=== PATIENT | female | born 1975 | race African-American/Black ===

== ENCOUNTER 2019-04-02 16:41 | Outpatient (CLI) | payer BC, SELFPAY ==
--- NOTE | ~2019-04-02 | MM_ITS ---
EXAMINATION: MM screening mitra BI w kira HISTORY: Screening mammogram TECHNIQUE: Craniocaudal and mediolateral oblique 3-D tomosynthesis images were obtained and synthetic 2-D images were generated. CAD analysis was submitted and interpreted. COMPARISON: 02/20/2018 BREAST PARENCHYMAL COMPOSITION: The breasts are almost entirely fatty. FINDINGS: There is no evidence of suspicious mass, calcification, or architectural distortion to sugg est malignancy in either breast. There has been no suspicious interval change. IMPRESSION: 1. No mammographic evidence of malignancy. 2. Recommend routine screening mammography in one year. BI-RADS Category 1: Negative Reviewed, dictated and finalized at location A. INSPECTOR
== END 2019-04-02 16:42 | disposition home or self-care (01) ==
LOC: ANHIMG 16:43
PROVIDERS: PCP Internal Medicine; Visit Provider Internal Medicine
DX: Z12.31 Encounter for screening mammogram for malignant neoplasm of breast (principal)
CPT/HCPCS: 77063; 77067

== ENCOUNTER 2022-07-28 12:51 | Emergency (ER) | payer OTHER, SELFPAY ==
[2022-07-28 13:09] VITALS: BP 152/94; PULSE 100; RESP 19; TEMP 36.9; O2SAT 100
--- NOTE | 2022-07-28 13:56 | ED.GENADULT ---
HPI - General Adult General Chief complaint: Unspecified Stated complaint: i just have been feeling really sick Time Seen by Provider: 07/28/22 13:30 History of Present Illness HPI narrative: 46-year-old female presented to the emergency department for evaluation of 2 weeks of body aches and associated generalized weakness and dark urine. Patient does take medication for her blood pressure but denies any change in her medications. Patient reports a few weeks ago she was bit by a bee and did have an allergic reaction to this. Patient reports that the body aches have improved but she still does have generalized fatigue. Related Data Allergies Allergy/AdvReac Type Severity Reaction Status Date / Time No Known Allergies Allergy Mild Verified 07/28/22 12:53 Review of Systems Review of Systems: All systems reviewed & are unremarkable except as noted in HPI and below PMFSH Family History Family History (Updated 10/02/15 @ 23:19 by DOCTOR UNKNOWN) Father Family history of elevated blood lipids Family history of diabetes mellitus in first degree relative Grandparent Diabetes mellitus Social History Social History Smoking status: Light tobacco smoker Second hand tobacco smoke exposure: No Smoking end date: 03/06/10 Alcohol intake: current Exam Narrative: APPEARANCE: Well appearing, no pain, no distress, well-nourished. HEAD: normocephalic, atraumatic. EYES: PERRLA/EOMI, conjunctivae clear. NOSE: Normal no drainage NECK: Supple. No adenopathy, no masses. RESPIRATORY: Airway patent, respirations nonlabored. Clear to auscultation bilaterally, no rales, rhonchi, wheezing. CARDIOVASCULAR: Regular rate and rhythm without murmurs rubs or gallops. ABDOMINAL: Soft, nontender, nondistended, normal bowel sounds MUSCULOSKELETAL: Moves all extremities. Strength/ROM intact, No edema, No calf tenderness. NEURO: Alert. Cranial nerves II through XII intact. Grossly intact SKIN: Warm, dry. Normal Color Course Course Emergency Course: 46-year-old female present emerged department for evaluation of generalized weakness and dark urine. Patient is afebrile with no leukocytosis. Patient's hemoglobin is 12.0. Patient's patient does have elevated transaminases with an AST of 169, ALT of 266 and alk phos of 360. Patient has no elevation in her bilirubin. Patient's UA is concerning for urinary tract infection with positive nitrates positive leukoesterase and 11-20 white blood cells, along with high bacteria. Patient was started on IV Rocephin and will be discharged home on p.o. Keflex. Patient was updated on the results of her work-up and encouraged to drink plenty fluids and take antibiotics until completed. Patient was also encouraged of close follow-up with her physician to have her liver enzymes rechecked. Patient described an episode where she was stung on the left by a bee a few weeks ago and she had associated tachycardia diaphoresis nausea and GI symptoms. 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 Patient was written a prescription for an EpiPen in case she has additional bee stings and has an escalated reaction. Vital Signs Vital signs: Vital Signs Temperature 98.5 F 07/28/22 13:09 Pulse Rate 100 07/28/22 13:09 Respiratory Rate 19 07/28/22 13:09 Blood Pressure 152/94 H 07/28/22 13:09 Pulse Oximetry 100 07/28/22 13:09 Oxygen Delivery Room Air 07/28/22 13:09 Temperature 98.5 F 07/28/22 13:09 Pulse Rate 104 H 07/28/22 15:29 Respiratory Rate 26 H 07/28/22 15:29 Blood Pressure 138/70 07/28/22 15:29 Pulse Oximetry 98 07/28/22 15:29 Oxygen Delivery Room Air 07/28/22 13:09 Medical Decision Making Differential Diagnosis Differential Diagnosis: Urinary tract infection, rhabdomyolysis, kidney stone Vital Signs Vital Signs: Vital Signs Temperature 98.5 F 07/28/22 13:09 Pulse Rate 100 07/28/22 13:09 Respiratory Rate 19 07/28/22 13:09 Blood Pressure 152/94 H 07/28/22 13:
[2022-07-28 13:59] VITALS: PULSE 114
[2022-07-28 14:07] LABS: Basophils Absolute Auto 0.1 K/mm3 (0.0-0.1); Basophils Percent Auto 1.5 % (0.2-1.2); Eosinophils Absolute Auto 0.1 K/mm3 (0-0.3); Eosinophils Percent Auto 0.7 % (0-4.4); Hematocrit 36.7 % (37.0-47.0); Immature Granulocyte Absolute 0.07 K/mm3 (0.00-0.031); Immature Granulocyte Percent A 0.8 % (0-0.5); Lymphocytes Absolute Auto 5.19 K/mm3 (0.9-3.2); Lymphocytes Percent Auto 62.8 % (18.3-44.2); Mean Corpuscular HGB Conc 32.7 g/dl (32-36); Mean Corpuscular Volume 82.5 fl (80-100); Monocytes Absolute Auto 0.4 K/mm3 (0.1-0.6); Monocytes Percent Auto 4.6 % (2.6-8.5); Neutrophils Absolute Auto 2.4 K/mm3 (1.3-6.7); Neutrophils Percent Auto 29.6 % (45.5-73.1); Platelet Count Result 273 k/mm3 (150-375); Red Blood Count 4.45 M/mm3 (4.2-5.4); Red Cell Distribution Width 13.5 % (11.5-14.5); White Blood Count 8.3 K/mm3 (4.5-10.0)
[2022-07-28 14:09] VITALS: RESP 22; O2SAT 100
[2022-07-28 14:11] VITALS: BP 130/79; PULSE 117; RESP 22; O2SAT 100
[2022-07-28 14:17] LABS: Alanine Aminotransferase 266 U/L (6-35); Albumin Level 3.9 g/dL (3.5-5.1); Alkaline Phosphatase 360 U/L (38-126); Anion Gap 8 mmol/L (8-16); Aspartate Amino Transferase 169 U/L (14-36); Blood Urea Nitrogen 7 mg/dL (7-17); Calcium 8.2 mg/dL (8.4-10.2); Carbon Dioxide 27 mmol/L (22-30); Chloride 100 mmol/L (98-107); Creatine Kinase 120 U/L (30-135); Estimated CRCL calculation 108 ml/min; Estimated Glomerular Filt Rate > 60; Glucose 101 mg/dL (65-110); Potassium 3.4 mmol/L (3.4-5.0); Sodium 135 mmol/L (137-145)
[2022-07-28] MEDS: SODIUM CHLORIDE 0.9% IV 1,000 ML 999 ML IV CONT (14:32)
[2022-07-28 14:34] LABS: Atypical Lymphocytes Present; Platelet Estimate Adequate (Adequate); Schistocytes None Seen (NORMAL)
[2022-07-28 14:46] LABS: Appearance Urine Cloudy (Clear); Bacteria Urine 2+ /hpf; Bilirubin Urine Negative (Negative); Blood Urine Negative (Negative); Color Urine Dark Yellow (Yellow); Glucose Urine UA Negative (Negative); Ketones Urine 1+ mg/dL (Negative); Leukocyte Esterase Ur Trace LEU/UL (Negative); Need Manual Microscopic Reviewed; Nitrate Urine Positive (Negative); Protein Urine 1+ mg/dL (Negative); Specific Grav Ur 1.011 (1.001-1.035); Squamous Epithelial Cell Urine Few /hpf (Few)
[2022-07-28 14:47] LABS: Add Urine Microscopic? YES
[2022-07-28 15:05] LABS: Influenza A QL RT-PCR Negative (Negative); Influenza B QL RT-PCR Negative (Negative); RSV RNA, RT-PCR Negative (Negative); SARS-CoV-2 RNA PCR Negative (Negative)
[2022-07-28 15:29] VITALS: BP 138/70; PULSE 104; RESP 26; O2SAT 98
== END 2022-07-28 15:30 | disposition home or self-care (01) ==
PROVIDERS: Emergency Provider Emergency Medicine
DX: N39.0 Urinary tract infection, site not specified (principal); R74.01 Elevation of levels of liver transaminase levels; Z20.822 Contact with and (suspected) exposure to COVID-19; Z87.891 Personal history of nicotine dependence
CPT/HCPCS: 36415; 80053; 81001; 81025; 82550; 85025; 87077; 87086; 87088; 87186; 87637; 96360; 99283; J7030

== ENCOUNTER 2022-10-07 14:26 | Outpatient (CLI) | payer OTHER, SELFPAY ==
--- NOTE | ~2022-10-07 | MM_ITS ---
EXAMINATION: MM screening mitra BI w kira HISTORY: Screening mammogram TECHNIQUE: Craniocaudal and mediolateral oblique 3-D tomosynthesis images were obtained and synthetic 2-D images were generated. CAD analysis was submitted and interpreted. COMPARISON: 04/02/2019, 02/20/2018 BREAST PARENCHYMAL COMPOSITION: The breasts are almost entirely fatty. FINDINGS: No suspicious mass, calcification, or architectural distortion are identified in either kyra ast to suggest malignancy. There has been no suspicious interval change. IMPRESSION: 1. No mammographic evidence of malignancy. 2. Recommend routine screening mammography in one year. BI-RADS Category 1: Negative Reviewed, dictated and finalized at location A.
== END 2022-10-07 14:27 | disposition home or self-care (01) ==
LOC: ANHIMG 14:55
PROVIDERS: Visit Provider Family Medicine
DX: Z12.31 Encounter for screening mammogram for malignant neoplasm of breast (principal)
CPT/HCPCS: 77063; 77067

== ENCOUNTER 2022-12-06 00:39 | Day surgery (SDC) | payer OTHER, SELFPAY ==
[2022-11-23 15:54] VITALS: BMI 45.5
[2022-12-06 08:15] VITALS: BP 140/87; PULSE 86; RESP 18; TEMP 36.1; O2SAT 99
--- NOTE | 2022-12-06 08:26 | PM.HPGS ---
History of Present Illness History of Present Illness Consent: Risks, benefits, and alternatives have been discussed and questions answered. Patient agrees to proceed with procedure. Chief complaint: neoplasm screening Narrative: Norma Carranza is a 47 year old female here for first screening colonoscopy Review of Systems Constitutional: Constitutional: Denies headache(s) and Denies weakness Eyes: Eyes: Denies blurry vision ENT: Reports Normal hearing present, Denies headache(s) and Denies neck pain Cardiovascular: Cardiovascular: Denies chest pain and Denies dyspnea Respiratory: Respiratory: Denies dyspnea Gastrointestinal: Gastrointestinal: Reports no additional gastrointestinal complaints Genitourinary: Genitourinary: Denies dysuria Musculoskeletal: Musculoskeletal: Denies neck pain Integumentary/Breasts: Skin/Breast: Denies dry skin Neurologic: Reports Normal hearing present, Denies headache(s) and Denies weakness Psychiatric: Psychiatric: Denies anxiety Endocrine: Endocrine: Denies change in body appearance Hematologic/Lymphatic: Hematologic/Lymphatic: Denies easy bleeding Allergic/Immunologic: Allergic/Immunologic: Denies urticaria [facility] Past Medical History Medical History (Updated 12/06/22 @ 08:27 by Jimbo Whitaker MD) Colon cancer screening Family History Family History (Updated 10/02/15 @ 23:19 by DOCTOR UNKNOWN) Father Family history of elevated blood lipids Family history of diabetes mellitus in first degree relative Grandparent Diabetes mellitus Social History Social History Years smoked: 24 Smoking status: Former smoker Tobacco type: cigarettes Second hand tobacco smoke exposure: No Smoking end date: 03/06/10 Alcohol intake: never Substance use: current Substance use type: marijuana Other substance usage details: 2-3 times/week Living arrangements: alone Spiritual care concerns: No Meds Home Medications and Allergies Home Medications Medication Instructions Recorded Confirmed Type epinephrine 0.3 mg/0.3 mL 0.3 mg (0.3 mL) IM ONCE #2 ea 07/28/22 11/23/22 Rx injection, auto-injector (EpiPen) amlodipine 5 mg tablet 5 mg PO DAILY 11/23/22 11/23/22 History Allergies Allergy/AdvReac Type Severity Reaction Status Date / Time No Known Allergies Allergy Mild Verified 12/06/22 08:14 Vital Signs Vital Signs - 24 hr 12/06/22 08:15 Temperature 97 F L Pulse Rate 86 Respiratory Rate 18 Blood Pressure 140/87 Pulse Oximetry 99 Oxygen Delivery Room Air Exam Const: General: comfortable and no acute distress HENMT: Face/Nose/Sinus: Normal nares present Eyes: General: appearance normal, both eyes and all related structures Neck: Neck: no JVD Resp: Auscultation: clear to auscultation bilaterally Cardio: Rate: regular rate Rhythm: regular rhythm GI: Inspection: non-distended GI Palp: Yes Soft to palpation Skin: General skin exam: normal color Neuro: General: gait normal Speech: normal speech Extrem: General: normal to inspection Psych: Mental Status: mental status grossly normal Assessment and Plan Assessment and plan (1) Colon cancer screening: Code(s): Z12.11 - Encounter for screening for malignant neoplasm of colon Status: Acute Assessment and Plan: colonoscopy
[2022-12-06] MEDS: LACTATED RINGERS 1,000 ML 150 ML IV CONT (08:28)
--- NOTE | 2022-12-06 08:44 | WPDANESEPPF ---
Anes - Initial Pre Proc Eval Procedure: Operation Date: 12/06/22 09:30 Proposed Procedures p Screening Colonoscopy - Jimbo Whitaker MD Date/Time: 12/06/22 08:44 Surgeon: Jimbo Whitaker MD Pre Op Diagnosis: neoplasm screening Patient Data Age: 47 Gender: F Height: 1.7 m Weight: 130.6 kg Last Vital Signs Temp 97 F L 12/06/22 08:15 Pulse 86 12/06/22 08:15 Resp 18 12/06/22 08:15 BP 140/87 12/06/22 08:15 Pulse Ox 99 12/06/22 08:15 O2 Del Method Room Air 12/06/22 08:15 Allergies Allergy/AdvReac Type Severity Reaction Status Date / Time No Known Allergies Allergy Mild Verified 12/06/22 08:14 Home Medications Medication Instructions Recorded Confirmed Type epinephrine 0.3 mg/0.3 mL 0.3 mg (0.3 mL) IM ONCE #2 ea 07/28/22 11/23/22 Rx injection, auto-injector (EpiPen) amlodipine 5 mg tablet 5 mg PO DAILY 11/23/22 11/23/22 History Patient hx anesthesia problems: none Family hx anesthesia problems: none Results Review: All pre-operative results and documents have been reviewed as part of the pre-operative evaluation. [facility] Past Medical History Medical History (Updated 12/06/22 @ 08:27 by Jimbo Whitaker MD) Colon cancer screening Family History Family History (Updated 10/02/15 @ 23:19 by DOCTOR UNKNOWN) Father Family history of elevated blood lipids Family history of diabetes mellitus in first degree relative Grandparent Diabetes mellitus Social History Social History Years smoked: 24 Smoking status: Former smoker Tobacco type: cigarettes Second hand tobacco smoke exposure: No Smoking end date: 03/06/10 Alcohol intake: never Substance use: current Substance use type: marijuana Other substance usage details: 2-3 times/week Living arrangements: alone Spiritual care concerns: No Anes - Eval Final PreProcedure Day of Procedure 12/06/22 08:44 Patient weight: morbidly obese Airway: Mallampati scale class II ASA classification: III Anesthesia type and monitoring: general GIVS and standard monitoring Results Review: All pre-operative results and documents have been reviewed as part of the pre-operative evaluation. Informed Consent: The patient's anesthetic plan and its attendant risks and benefits were discussed with the patient/family/POA. Questions were solicited and answers provided to the satisfaction of the patient/family/POA.
[2022-12-06 08:47] VITALS: BP 103/55; PULSE 77; RESP 20; O2SAT 98
[2022-12-06 08:57] VITALS: BP 122/78; PULSE 64; RESP 20; O2SAT 100
[2022-12-06 09:07] VITALS: BP 129/87; PULSE 60; RESP 20; O2SAT 100
== END 2022-12-06 09:34 | disposition home or self-care (01) ==
PROVIDERS: Visit Provider Internal Medicine Gastroenterology
PROC: 0DJD8ZZ Inspection of Lower Intestinal Tract, Via Natural or Artificial Opening Endoscopic (ICD-10-PCS; CPT 45378; principal; 2022-12-06 09:30)
DX: Z12.11 Encounter for screening for malignant neoplasm of colon (principal); Z87.891 Personal history of nicotine dependence; F12.90 Cannabis use, unspecified, uncomplicated; E66.01 Morbid (severe) obesity due to excess calories; Z68.42 Body mass index [BMI] 45.0-49.9, adult
CPT/HCPCS: 45378; J2704; J7120

== ENCOUNTER 2023-03-24 17:52 | Emergency (ER) | payer OTHER, SELFPAY ==
[2023-03-24 18:05] VITALS: BP 149/86; PULSE 73; RESP 18; TEMP 36.4; O2SAT 100
[2023-03-24 18:06] VITALS: BP 149/86; PULSE 73; RESP 18; TEMP 36.4; O2SAT 100
--- NOTE | 2023-03-24 18:08 | ED.URI ---
HPI - URI/Sore Throat General Chief Complaint: Upper Respiratory Infection Stated Complaint: cough,nausea,congestion Time Seen by Provider: 03/24/23 18:08 History of Present Illness HPI Narrative: 47-year-old female presented for complaint of cough, nasal congestion, nausea, onset 4 days. And bilateral eye crusting since yesterday. Denies vision changes, swelling, headaches. Taking Mucinex for symptoms. Denies shortness of breath, wheezing, vomiting, diarrhea, fevers or lethargy. She took a home COVID test, negative today. Related Data Home Medications Medication Instructions Recorded Confirmed amlodipine 5 mg tablet 5 mg PO DAILY 11/23/22 03/24/23 Allergies Allergy/AdvReac Type Severity Reaction Status Date / Time No Known Allergies Allergy Mild Verified 03/24/23 18:05 Review of Systems Review of Systems: CONSTITUTIONAL: Denies body aches, fever, chills, or sweats. EYES: Denies visual changes, redness, reports discharge. ENT: reports rhinorrhea, congestion. CARDIOVASCULAR: Denies chest pain, palpitations, or edema. RESPIRATORY: reports cough Denies dyspnea. GASTROINTESTINAL: Denies abdominal pain, nausea, vomiting, or diarrhea. SKIN: Denies rash, itching, or wounds. MUSCULOSKELETAL: Denies back pain, joint pain, or myalgia. NEUROLOGIC: Denies headache PMFSH Past Medical History Medical History Colon cancer screening Family History Family History Father Family history of elevated blood lipids Family history of diabetes mellitus in first degree relative Grandparent Diabetes mellitus Social History Social History Years smoked: 24 Smoking status: Former smoker Tobacco type: cigarettes Second hand tobacco smoke exposure: No Smoking end date: 03/06/10 Alcohol intake: never Substance use: current Substance use type: marijuana Other substance usage details: 2-3 times/week Living arrangements: alone Spiritual care concerns: No Exam Narrative: GENERAL: well-appearing, no acute distress. EYES: conjunctival injection mild bilaterally; left eye with moderate amount purulent drainage ENT: Mucous membranes moist. TMs pearly calvillo with normal light reflex bilaterally; no tragal tenderness. Oropharynx erythematous without lesions. Tonsils not enlarged and without exudate. No drooling, no hoarseness, no trismus, uvula midline. No tripod positioning, hot potato voice, or soft palate swelling. NECK: Supple. No lymphadenopathy CHEST: Clear to auscultation, breath sounds equal. No respiratory distress, speaks in full sentences. Frequent moist band master cough HEART: Regular rate and rhythm. No murmur heard. SKIN: Warm, dry, no rash. NEURO: Alert and oriented x3. Course Course Emergency Course: Patient is aware of diagnosis, understands and agrees to treatment plan. Anticipatory guidance given. Patient agrees to follow-up as directed and is aware of reasons to seek care at the emergency department. Portions of this record may have been created with voice recognition software Level of Care: Express Care Visit Vital Signs Vital signs: Vital Signs Temperature 97.5 F L 03/24/23 18:05 Pulse Rate 73 03/24/23 18:05 Respiratory Rate 18 03/24/23 18:05 Blood Pressure 149/86 H 03/24/23 18:05 Pulse Oximetry 100 03/24/23 18:05 Oxygen Delivery Room Air 03/24/23 18:05 Temperature 97.5 F L 03/24/23 18:06 Pulse Rate 73 03/24/23 18:06 Respiratory Rate 18 03/24/23 18:06 Blood Pressure 149/86 H 03/24/23 18:06 Pulse Oximetry 100 03/24/23 18:06 Oxygen Delivery Room Air 03/24/23 18:06 MDM - URI/Sore Throat MDM Narrative Medical decision making narrative: neg flu result reviewed with pt. discussed physical exam findings consistent with conjunctivitis Advise supportive treatments. Dominga
== END 2023-03-24 18:37 | disposition home or self-care (01) ==
PROVIDERS: Emergency Provider Nurse Practitioner Family
DX: H10.32 Unspecified acute conjunctivitis, left eye (principal); J06.9 Acute upper respiratory infection, unspecified; Z87.891 Personal history of nicotine dependence; F12.90 Cannabis use, unspecified, uncomplicated
CPT/HCPCS: 87804; 99213; G0463

== ENCOUNTER 2023-12-08 09:53 | Emergency (ER) | payer OTHER, SELFPAY ==
[2023-12-08 10:26] VITALS: BP 116/70; PULSE 76; RESP 16; TEMP 36.4; O2SAT 99
--- NOTE | 2023-12-08 10:40 | ED.EYEPROB ---
HPI - Eye Problem General Chief complaint: Eye Problems Stated complaint: bilateral eye irritation Time Seen by Provider: 12/08/23 10:41 Source: patient, RN notes reviewed and old records reviewed Mode of arrival: ambulatory Limitations: no limitations History of Present Illness HPI Narrative: patient presents with complaints of bilateral eye irritation. She reports that symptoms began in right eye yesterday, this eye was matted shut upon awakening, and she began having some irritation to the left eye this morning. She reports some purulent drainage, redness. Denies injury or trauma. She does wear contact lenses. Denies any visual disturbances. No other concerns or complaints today Related Data Home Medications Medication Instructions Recorded Confirmed amlodipine 5 mg tablet 5 mg PO DAILY 11/23/22 12/08/23 Allergies Allergy/AdvReac Type Severity Reaction Status Date / Time No Known Allergies Allergy Mild Verified 12/08/23 10:24 Review of Systems Review of Systems: All systems reviewed & are unremarkable except as noted in HPI and below Constitutional: Constitutional: Reports no additional constitutional complaints Eyes: Eyes: Reports as per HPI, Denies blurry vision, Denies change in vision, Reports eye discharge, Reports irritation, Reports itchy eyes and Reports requires corrective lenses ENT: Reports system reviewed and no additional complaints, except as documented Cardiovascular: Cardiovascular: Reports no additional cardiovascular complaints Respiratory: Respiratory: Reports no additional respiratory complaints Gastrointestinal: Gastrointestinal: Reports no additional gastrointestinal complaints [facility] Past Medical History Medical History Colon cancer screening Family History Family History Father Family history of elevated blood lipids Family history of diabetes mellitus in first degree relative Grandparent Diabetes mellitus Social History Social History Years smoked: 24 Smoking status: Former smoker Tobacco type: cigarettes Second hand tobacco smoke exposure: No Smoking end date: 03/06/10 Alcohol intake: never Substance use: current Substance use type: marijuana Other substance usage details: 2-3 times/week Living arrangements: alone Spiritual care concerns: No Comments At the time of my signature, I reviewed and agree with the nursing past medical, surgical, social, and family history. There is no relevant family history pertinent to the patient complaint. Exam Const: General: cooperative, no acute distress, alert and awake Orientation/consciousness: oriented to person, oriented to place and oriented to time HENMT: Head: normal to inspection Eyes: Eyelids: eyelids normal Conjunctivae: conjunctival abnormality bilateral conjunctival injection and discharge Sclera: scleral abnormality right scleral injection medial Resp: Effort & Inspection: normal respiratory effort and able to speak in complete sentences Auscultation: clear to auscultation bilaterally, no crackles, no rales, no rhonchi and no wheezes Cardio: Palpation: normal PMI Rate: regular rate Rhythm: regular rhythm Heart sounds: S1 normal heart sound present and S2 normal heart sound present Neuro: General: oriented to person, oriented to place and oriented to time Cranial nerves: Yes CN's II-XII intact bilaterally Psych: Appearance: grossly normal Thought process: Normal thought process present Insight: Good insight present (Psych) Judgement: Good judgement present (Psych) Course Course Emergency Course: exam consistent with conjunctivitis. Treat with ophthalmic ointment. Patient advised not to wear contact lenses until treatment complete, discard any eye cosmetics that have been used in the past 48 hours. She is in agreeme
== END 2023-12-08 10:53 | disposition home or self-care (01) ==
PROVIDERS: Emergency Provider Nurse Practitioner Family; PCP Family Medicine
DX: H10.9 Unspecified conjunctivitis (principal); Z87.891 Personal history of nicotine dependence; F12.90 Cannabis use, unspecified, uncomplicated
CPT/HCPCS: 99213; G0463

== ENCOUNTER 2024-03-03 18:08 | Emergency (ER) | payer OTHER, SELFPAY ==
[2024-03-03 18:27] VITALS: O2SAT 100
[2024-03-03 18:50] VITALS: BP 161/96; PULSE 82; RESP 16; TEMP 36.7
[2024-03-03 18:51] LABS: EDUAAPPEAR Clear; EDUABILI Negative (Negative); EDUABLOOD Trace (Negative); EDUACOLOR1 Yellow; EDUAGLUCOSE Negative (Negative); EDUAKETONE Negative (Negative); EDUALEUKO Negative (Negative); EDUANITRATE Negative (Negative); EDUAPROTEIN Negative (Negative); EDUAUROBILI 0.2
--- NOTE | 2024-03-03 18:52 | ED_ITS ---
HPI - Female Genitourinary General Chief complaint: Urogenital-Female Stated complaint: Uti Symptoms Time Seen by Provider: 03/03/24 18:48 Source: patient and RN notes reviewed Mode of arrival: ambulatory Limitations: no limitations History of Present Illness HPI Narrative: Patient presents today complaining of sharp pain with urination since yesterday. Denies any additional symptoms to include frequency, abdominal pain. No [id number] treatment prior to arrival. Related Data Home Medications ?Medication ?Instructions ?Recorded ?Confirmed ?Last Taken ?Type amlodipine 5 mg tablet 5 mg PO DAILY 11/23/22 03/03/24 Unknown History Allergies Allergy/AdvReac Type Severity Reaction Status Date / Time No Known Allergies Allergy Mild Verified 03/03/24 18:47 Review of Systems Review of Systems: CONSTITUTIONAL: Denies body aches, fever, chills, or sweats. EYES: Denies visual changes, redness, or discharge. ENT: Denies rhinorrhea, congestion, sore throat, or otalgia. CARDIOVASCULAR: Denies chest pain, palpitations, or edema. RESPIRATORY: Denies cough or dyspnea. GASTROINTESTINAL: Denies abdominal pain, nausea, vomiting, or diarrhea. GENITOURINARY: Denies hematuria.+ dysuria SKIN: Denies rash, itching, or wounds. MUSCULOSKELETAL: Denies back pain, joint pain, or myalgia. NEUROLOGIC: Denies headache, numbness, tingling, or weakness. PSYCH: Denies depression or anxiety. [facility] Past Medical History Medical History Colon cancer screening Family History Family History Father Family history of elevated blood lipids Family history of diabetes mellitus in first degree relative Grandparent Diabetes mellitus Social History Social History Years smoked: 24 Smoking status: Former smoker Tobacco type: cigarettes Second hand tobacco smoke exposure: No Smoking end date: 03/06/10 Alcohol intake: never Substance use: current Substance use type: marijuana Other substance usage details: 2-3 times/week Living arrangements: alone Spiritual care concerns: No Comments At time of signature, I have reviewed and agree with nursing past medical, surgical, social and family history unless otherwise noted. Please see nursing chart for further information. There is no relevant family history pertinent to the presenting complaint Exam Narrative: GENERAL: Well-appearing, well-nourished, and in no acute distress. HEAD: Normocephalic, atraumatic. EYES: EOMI. No redness or drainage. Conjunctivae normal. ENT: Mucous membranes pink and moist. NECK: Normal AROM. CHEST: No respiratory distress. EXTREMITIES: Normal range of motion. No edema. SKIN: Warm, dry, no rash. Capillary refill normal. Normal skin turgor. NEURO: No focal deficits. Alert and oriented x3. Gait steady. PSYCH: Normal affect. No signs of depression or anxiety. Course Course Level of Care: Express Care Visit Vital Signs Vital signs: Vital Signs Pulse Oximetry 100 03/03/24 18:27 Temperature 98.1 F 03/03/24 18:50 Pulse Rate 82 03/03/24 18:50 Respiratory Rate 16 03/03/24 18:50 Blood Pressure 161/96 H 03/03/24 18:50 Pulse Oximetry 100 03/03/24 18:27 Reviewed MDM - Female Genitourinary MDM Narrative Medical decision making narrative: Urinalysis shows trace blood. This along with patient's symptoms can be consistent with UTI. Will treat with some Augmentin. Culture pending. Anticipatory guidance given. Differential Diagnosis Differential diagnosis: Likely urinary tract infection, vaginitis and cystitis Lab Data Attestation: I reviewed the patient's lab results. Labs: Lab Results 03/03/24 Range/Units 18:38 POC Urine Color Yellow POC Urine Clarity Clear POC Urine pH 6.0 POC Ur Specif Mullens 1.030 POC Urine Protein Negative (Negative) POC Ur Glucose (UA) Negative (Negative) POC Urine Ketones Negative (Negative) POC Urine Blood Trace (Negative) POC Urine Nitrite Negative (Negative) POC Urine Bilirubin Negative (Negative) POC Urine Urobilinogen 0.2 POC U Leukocyte Esteras Negative (Negative) Critical Care Time Critical Care Time Critical Care Time: No Discharge Plan Discharge Clinical Impression: Urinary tract infection Patient Disposition: Home, Self-Care Condition: Stable Instructions: Antibiotic Form, Urinary Tract Infection in Women (ED) Additional Instructions: Your urine shows infection today. Take Augmentin as prescribed until gone. Your urine will be sent of for a culture to identify what type of bacteria is causing your infection. If the culture shows that your medication will not get rid of your infection, you will be notified and a new antibiotic will be called in for you. If your symptoms worsen to include fever, sweats, chills, nausea, vomiting, severe abdominal or back pain, please go to the ER for further evaluation. Your blood pressure was elevated above 120/80 today at Urgent Care. This puts you above the threshold for follow up. Please schedule a followup visit with your personal physician as soon as possible, for further evaluation and treatment. Even blood pressure exceeding 120/80 may indicate pre-hypertension. Patient Language: Ivorian Prescriptions: New amoxicillin-pot clavulanate 875-125 mg tablet 1 tablet PO Q12H 7 Days Qty: 14 0RF No Action amlodipine 5 mg tablet 5 mg PO DAILY Follow-up/Referrals: Dinesh,MD Rebekah [Primary Care Provider] - Time of Disposition: 18:59
== END 2024-03-03 19:01 | disposition home or self-care (01) ==
PROVIDERS: Emergency Provider Nurse Practitioner; PCP Family Medicine
DX: N39.0 Urinary tract infection, site not specified (principal); Z87.891 Personal history of nicotine dependence
CPT/HCPCS: 81003; 87086; 99213; G0463

== ENCOUNTER 2025-02-02 12:18 | Emergency (ER) | payer OTHER, SELFPAY ==
[2025-02-02 12:38] VITALS: BP 131/96; PULSE 85; RESP 16; TEMP 36.6; O2SAT 100
[2025-02-02 12:46] LABS: EDSTREPNEGPOS1 Negative (Negative)
--- NOTE | 2025-02-02 13:13 | ED_ITS ---
HPI - URI/Sore Throat General Chief Complaint: Upper Respiratory Infection Stated Complaint: SORE THROAT Time Seen by Provider: 02/02/25 13:07 Source: patient and RN notes reviewed Mode of arrival: ambulatory Limitations: no limitations History of Present Illness HPI Narrative: 49-year-old female patient presents today complaining of sore throat, fatigue, and some mild postnasal drip since yesterday. Pain increases with swallowing. She has tried some tea with honey without improvement. She wanted to make sure she does not have strep throat. Related Data Home Medications ?Medication ?Instructions ?Recorded ?Confirmed ?Last Taken ?Type amlodipine 5 mg tablet 5 mg PO DAILY 11/23/2202/02 Unknown History Allergies Allergy/AdvReac Type Severity Reaction Status Date / Time No Known Allergies Allergy Mild Verified 02/02/25 12:32 PMFSH Past Medical History Medical History Colon cancer screening Family History Family History Father Family history of elevated blood lipids Family history of diabetes mellitus in first degree relative Grandparent Diabetes mellitus Social History Social History Years smoked: 24 Smoking status: Former smoker Tobacco type: cigarettes Second hand tobacco smoke exposure: No Smoking end date: 03/06/10 Alcohol intake: never Substance use: current Substance use type: marijuana Other substance usage details: 2-3 times/week Living arrangements: alone Spiritual care concerns: No Comments At time of signature, I have reviewed and agree with nursing past medical, surgical, social and family history unless otherwise noted. Please see nursing chart for further information. There is no relevant family history pertinent to the presenting complaint Exam Narrative: GENERAL: Well-appearing, well-nourished, and in no acute distress. HEAD: Normocephalic, atraumatic. EYES: EOMI. No redness or drainage. Conjunctivae normal. ENT: Mucous membranes pink and moist. Nares clear. No rhinorrhea. TMs normal bilaterally. Throat mildly erythematous without edema or exudate. Uvula midline. NECK: Normal AROM. Supple. No lymphadenopathy. CHEST: No respiratory distress. Clear to auscultation. HEART: Regular rate and rhythm. No murmur appreciated. EXTREMITIES: Normal range of motion. No edema. SKIN: Warm, dry, no rash. Capillary refill normal. Normal skin turgor. NEURO: No focal deficits. Alert and oriented x3. Gait steady. PSYCH: Normal affect. No signs of depression or anxiety. Course Course Level of Care: Express Care Visit Vital Signs Vital signs: Vital Signs Temperature 97.8 F 02/02/25 12:38 Pulse Rate 85 02/02/25 12:38 Respiratory Rate 16 02/02/25 12:38 Blood Pressure 131/96 H 02/02/25 12:38 Pulse Oximetry 100 02/02/25 12:38 Temperature 97.8 F 02/02/25 12:38 Pulse Rate 85 02/02/25 12:38 Respiratory Rate 16 02/02/25 12:38 Blood Pressure 131/96 H 02/02/25 12:38 Pulse Oximetry 100 02/02/25 12:38 Reviewed MDM - URI/Sore Throat MDM Narrative Medical decision making narrative: 49-year-old female patient presents today complaining of sore throat, fatigue, and some mild postnasal drip since yesterday. Pain increases with swallowing. She has tried some tea with honey without improvement. She wanted to make sure she does not have strep throat. Upon exam, patient has a mildly erythematous throat without edema or exudate. Exam is otherwise normal. Rapid strep negative. Culture pending. Symptoms likely viral in etiology. Discussed [id number] medication use and duration of illness. No prescription medications indicated at this time. Patient agrees with plan. Vital signs stable. Anticipatory guidance given. Differential Diagnosis Differential diagnosis: Likely upper respiratory infection, pharyngitis and other (Strep throat) Lab Data Attestation: I reviewed the patient's lab results. Labs: Lab Results 02/02/25 Range/Units 12:45 POC Grp A Strep Screen Negative (Negative) Critical Care Time Critical Care Time Critical Care Time: No Discharge Plan Discharge Clinical Impression: Pharyngitis Qualifiers: Pharyngitis/tonsillitis etiology: unspecified etiology Qualified Code(s): J02.9 - Acute pharyngitis, unspecified Patient Disposition: Home Condition: Stable Instructions: Pharyngitis (ED) Additional Instructions: Your rapid strep swab was negative today at [facility]. You will be notified in a few days if the culture comes back positive for strep, and appropriate antibiotics will be called in for you at that time. Your symptoms are likely due to a viral illness, which is not treated with antibiotics. Viral symptoms can be present for up to 7-10 days. Take Tylenol or ibuprofen for fever or pain. Rest and stay hydrated. Follow up with your PCP in 7 days if symptoms are not improving. Go to the ER immediately if you have any difficulty stevie thing or swallowing. Patient Language: Ecuadorean Prescriptions: No Action amlodipine 5 mg tablet 5 mg PO DAILY Follow-up/Referrals: Dinesh,MD Rebekah [Primary Care Provider, Unknown] Time of Disposition: 13:15
== END 2025-02-02 13:20 | disposition home or self-care (01) ==
PROVIDERS: Emergency Provider Nurse Practitioner; PCP Family Medicine
DX: J02.9 Acute pharyngitis, unspecified (principal); Z87.891 Personal history of nicotine dependence
CPT/HCPCS: 87081; 87880; 99213; G0463